=== PATIENT | male | born 1955 | race Caucasian/White ===

== ENCOUNTER 2021-12-11 19:26 | Observation (INO) ==
--- NOTE | 2021-12-11 19:22 | Emergency Department Note ---
History of Present Illness General Chief Complaint: Heart Alert Stated Complaint: Heart Alert History of Present Illness Provider Complaint: chest pain Onset (ago): day(s) 2 Duration: intermittent Pain Location: substernal Maximum Pain Intensity: 10 Current Pain Intensity: 10 Quality: + heaviness Relieved By: + nothing Exacerbated By: + nothing Associated symptoms: + dyspnea; no nausea or no vomiting Treatments prior to arrival: aspirin Home Medications Medication Instructions Recorded Confirmed Type No Known Home Medications 12/11/21 12/11/21 History Allergies Allergy/AdvReac Type Severity Reaction Status Date / Time No Known Allergies Allergy Unverified 12/11/21 19:52 Past Med/Surg History Medical History Left lumbar radiculitis No pertinent family history Surgical History No pertinent past surgical history Social History Smoking Status: Current every day smoker Tobacco Type: Cigars Hx Alcohol Use: No Hx Substance Use: No Preferred Language: Burkin[place] Tower Foreman Required: No Beliefs That Will Affect Care: None Current Living Situation: Family Feels Safe at Home: Yes Safety Concerns: Feels Safe At This Time Assistive Devices: None Assistive Devices Comment: reading glasses Review of Systems A total of 10 systems reviewed and were otherwise negative Physical Exam Vital Signs Vital Signs - 24 hr 12/11/21 19:31 12/11/21 19:36 12/11/21 19:40 Temperature 36.8 C Temperature Source Oral Pulse Rate 79 75 75 Pulse Rate [Left Apical] Respiratory Rate 19 17 21 Respiratory Effort / Characteristics Non-Labored Spontaneous Respiratory Depth Normal Blood Pressure 122/94 Blood Pressure [Left Arm] Blood Pressure Mean 103 Blood Pressure Mean [Left Arm] Blood Pressure Position [Left Arm] Pulse Oximetry 95 94 95 Pulse Oximetry [Left Index Finger] Oxygen Delivery Method Room Air Room Air Room Air Oxygen Delivery Method [Left Index Finger] Sepsis New/Unexplained Change in Mental Status N/A Sepsis Action Taken by Nursing No Action Required 12/11/21 20:19 12/11/21 21:15 Temperature 36.7 C Temperature Source Oral Pulse Rate Pulse Rate [Left Apical] 64 Respiratory Rate 17 Respiratory Effort / Characteristics Respiratory Depth Blood Pressure Blood Pressure [Left Arm] 125/77 Blood Pressure Mean Blood Pressure Mean [Left Arm] 93 Blood Pressure Position [Left Arm] Lying Pulse Oximetry 94 Pulse Oximetry [Left Index Finger] 95 Oxygen Delivery Method Room Air Oxygen Delivery Method [Left Index Finger] Room Air Sepsis New/Unexplained Change in Mental Status Sepsis Action Taken by Nursing Physical Exam GENERAL: He is oriented to person, place, and time. He appears well-developed and well-nourished. He does not appear distressed. HENT: Exam performed. - Head: Normocephalic and atraumatic. - Right Ear: External ear normal. No mastoid tenderness. - Left Ear: External ear normal. No mastoid tenderness. - Mouth/Throat: The oropharynx is clear and moist. No trismus in the jaw. No dental abscesses or uvula swelling. No oropharyngeal exudate or tonsillar abscesses. EYES: Conjunctivae and EOM are normal. Pupils are equal, round, and reactive to light. Right eye exhibits no discharge. Left eye exhibits no discharge. No scleral icterus. NECK: Normal range of motion. Neck supple. No JVD present. No spinous process tenderness present. No carotid bruit present. No rigidity. No tracheal deviation and normal range of motion present. No Brudzinski's sign and no Kernig's sign noted. CV: Normal rate, regular rhythm, normal heart sounds and intact distal pulses. There is no peripheral edema. Palpable radial pulses bue. PULM/CHEST: Effort normal and breath sounds normal. No respiratory distress. No stridor. He has no wheezes. He has no rales. - Chest Wall: He exhibits no tenderness. ABD: The abdomen is soft. Bowel sounds are normal. He has no distension. No mass is present. There is no tenderness. There is no rebound, no guarding, no Quintana's sign and no tenderness at McBurney's point. Rovsig negative. MUSC/SKEL: Normal range of motion. There is no peripheral edema, tenderness or deformity. LYMPH: No cervical adenopathy. NEURO: He is alert and oriented to person, place, and time. He has normal stren gth. No cranial nerve deficit or sensory deficit. Coordination and gait normal. GCS eye subscore is 4. GCS verbal subscore is 5. GCS motor subscore is 6. Cerebellar tests wnl. SKIN: Skin is warm and dry. He is not diaphoretic. PSYCH: He has a normal mood and affect. Behavior is normal. Judgment and thought content normal. Course Course 1904: call from EMS. heart alert called. prehosptial ekg sinus rhythym rate 76. [place] QRS QTc intervals within normal limits. ST elevation II, III, avF and STD I, aVL. 1929: The patient was evaluated in room B1. A complete history and physical exam was performed Cardiac monitoring: An order was placed for continuous cardiac monitoring. The monitor shows a rate of 70 with sinus rhythm 1932: Dr. Cody at bedside. 1941: Dr. Cody taken patient to the [facility]. Administered Medications Sodium Chloride (Nss 1000ml) 1,000 mls @ 100 mls/hr IV .Q10H [facility] Stop: 12/12/21 04:59 Last Admin: 12/11/21 22:12 Dose: 100 mls/hr Documented by: [id number] Metoprolol Tartrate (Metoprolol Tartrate 25 Mg Tab) 12.5 mg PO BID [facility] Stop: 01/10/22 21:29 Last Admin: 12/11/21 22:23 Dose: 12.5 mg Documented by: [id number] Discontinued Medications Atropine Sulfate (Atropine Sulfate 0.1 Mg/Ml 10ml Syr) Confirm Administered Dose 1 mg IV .STK-MED ONE Stop: 12/11/21 20:00 Last Admin: 12/11/21 20:52 Dose: Not Given Documented by: [id number] Clopidogrel Bisulfate (Clopidogrel Bisulfate 300 Mg Tab) Confirm Administered Dose 600 mg .ROUTE .STK-MED ONE Stop: 12/11/21 19:31 Last Admin: 12/11/21 20:52 Dose: 600 mg Documented by: [id number] Fentanyl Citrate (Fentanyl Citrate 100 Mcg/2 Ml Vial) Confirm Administered Dose 100 mcg .ROUTE .STK-MED ONE Stop: 12/11/21 19:27 Last Increment: 12/11/21 20:51 Dose: 50 mcg Documented by: [id number] Heparin Sodium (Porcine) (Heparin (Porcine) 1000 Unit/Ml 10 Ml ([facility] Use Only)) Confirm Administered Dose 10,000 units .ROUTE .STK-MED ONE Stop: 12/11/21 19:27 Last Admin: 12/11/21 20:51 Dose: 10,000 units Documented by: [id number] Heparin Sodium (Porcine) (Heparin (Porcine) 1000 Unit/Ml 10 Ml ([facility] Use Only)) Confirm Administered Dose 10,000 units .ROUTE .STK-MED ONE Stop: 12/11/21 20:24 Last Admin: 12/11/21 20:52 Dose: 2,000 units Documented by: [id number] Heparin Sodium/Sodium Chloride (Heparin In Nss Infusion 1000 Unit/500 Ml (2 U/Ml) Bag) Confirm Administered Dose 3,000 units IV .STK-MED ONE Stop: 12/11/21 19:27 Last Admin: 12/11/21 20:51 Dose: 3,000 units Documented by: [id number] Midazolam HCl (Midazolam Hcl 1 Mg/Ml 2ml Vial) Confirm Administered Dose 2 mg .ROUTE .STK-MED ONE Stop: 12/11/21 19:27 Last Admin: 12/11/21 20:51 Dose: 2 mg Documented by: [id number] Nicardipine HCl (Nicardipine Hcl Inj 2.5 Mg/Ml 10 Ml Amp) Confirm Administered Dose 25 mg .ROUTE .[id number] [address]-MED ONE Stop: 12/11/21 19:27 Last Admin: 12/11/21 20:52 Dose: 25 mg Documented by: [id number] Nitroglycerin/Dextrose (Nitroglycerin/D5w 100mcg/Ml 20ml Syr) Confirm Administered Dose 2,000 mcg .ROUTE .[id number] [address]-MED ONE Stop: 12/11/21 19:28 Last Admin: 12/11/21 20:52 Dose: 2,000 mcg Documented by: [id number] Medical Decision Making Laboratory Data Result diagrams: 12/11/21 19:32 12/11/21 19:32 Labs: Lab Results 12/11/21 12/11/21 12/11/21 Range/Units 19:32 19:32 19:32 WBC 10.60 (4.8-10.8) K/uL RBC 4.89 (4.7-6.1) M/uL Hgb 15.3 (14.0-18.0) g/dL Hct 44.3 (42-52) % MCV 90.6 (80-100) fL MCH 31.3 (25-34) pg MCHC 34.5 (32-36) g/dL RDW Std Deviation 48.4 H (36.4-46.3) fL RDW Coeff of Alessandro 14.5 (11.5-14.5) % Plt Count 250 (130-400) K/uL MPV 8.8 (7.4-10.4) fL Immature Gran % (Auto) 0.3 % Neut % (Auto) 70.6 % Lymph % (Auto) 18.8 % Dare % (Auto) 8.6 % Eos % (Auto) 1.2 % Baso % (Auto) 0.5 % Neut # (Auto) 7.49 H (1.4-6.5) K/uL Lymph # (Auto) 1.99 (1.2-3.4) K/uL Dare # (Auto) 0.91 H (0.11-0.59) K/uL Eos # (Auto) 0.13 (0-0.5) K/uL Baso # (Auto) 0.05 (0-0.2) K/uL Immature Gran # (Auto) 0.03 H (0.00-0.02) K/uL PT 10.5 (9.0-12.0) Seconds INR 1.0 (0.9-1.1) APTT 27.3 (21.0-31.0) Seconds PTT Ratio 1.0 Sodium 141 (136-145) mmol/L Potassium 4.1 (3.5-5.1) mmol/L Chloride 108 H (98-107) mmol/L Carbon Dioxide 25 (21-32) mmol/L Anion Gap 8 (3-11) BUN 22 (6-23) mg/dl Creatinine 1.14 (0.6-1.4) mg/dl Est Cr Clr Drug Dosing 74.9 ml/min Est GFR ( Amer) 78.3 ml/min Est GFR (Non-Af Amer) 67.6 ml/min BUN/Creatinine Ratio 19.3 (10-20) Glucose 105 H (70-99(Fasting)) mg/dl Calcium 9.0 (8.5-10.1) mg/dl Magnesium 1.8 (1.7-2.4) mg/dl Total Bilirubin 0.4 (0.2-1.0) mg/dl AST 21 (13-39) U/L ALT 17 (7-52) U/L Alkaline Phosphatase 55 (34-104) U/L Total Creatine Kinase 203 (30-223) U/L Troponin I 0.91 H* (0-0.04) ng/ml B-Natriuretic Peptide (0-100) pg/ml Total Protein 6.8 (6.0-8.3) gm/dl Albumin 3.8 (3.4-5.0) gm/dl Globulin 3.0 (2.5-4.0) gm/dl Albumin/Globulin Ratio 1.3 (0.9-2) Lipase 42 (11-82) U/L TSH (0.300-4.500) uIu/ml SARS-CoV-2, RNA, NAAT (NEGATIVE) 12/11/21 12/11/21 12/11/21 Range/Units 19:32 19:32 20:00 WBC (4.8-10.8) K/uL RBC (4.7-6.1) M/uL Hgb (14.0-18.0) g/dL Hct (42-52) % MCV (80-100) fL MCH (25-34) pg MCHC (32-36) g/dL RDW Std Deviation (36.4-46.3) fL RDW Coeff of Alessandro (11.5-14.5) % Plt Count (130-400) K/uL MPV (7.4-10.4) fL Immature Gran % (Auto) % Neut % (Auto) % Lymph % (Auto) % Dare % (Auto) % Eos % (Auto) % Baso % (Auto) % Neut # (Auto) (1.4-6.5) K/uL Lymph # (Auto) (1.2-3.4) K/uL Dare # (Auto) (0.11-0.59) K/uL Eos # (Auto) (0-0.5) K/uL Baso # (Auto) (0-0.2) K/uL Immature Gran # (Auto) (0.00-0.02) K/uL PT (9.0-12.0) Seconds INR (0.9-1.1) APTT (21.0-31.0) Seconds PTT Ratio Sodium (136-145) mmol/L Potassium (3.5-5.1) mmol/L Chloride (98-107) mmol/L Carbon Dioxide (21-32) mmol/L Anion Gap (3-11) BUN (6-23) mg/dl Creatinine (0.6-1.4) mg/dl Est Cr Clr Drug Dosing ml/min Est GFR ( Amer) ml/min Est GFR (Non-Af Amer) ml/min BUN/Creatinine Ratio (10-20) Glucose (70-99(Fasting)) mg/dl Calcium (8.5-10.1) mg/dl Magnesium (1.7-2.4) mg/dl Total Bilirubin (0.2-1.0) mg/dl AST (13-39) U/L ALT (7-52) U/L Alkaline Phosphatase (34-104) U/L Total Creatine Kinase (30-223) U/L Troponin I (0-0.04) ng/ml B-Natriuretic Peptide 98 (0-100) pg/ml Total Protein (6.0-8.3) gm/dl Albumin (3.4-5.0) gm/dl Globulin (2.5-4.0) gm/dl Albumin/Globulin Ratio (0.9-2) Lipase (11-82) U/L TSH 2.052 (0.300-4.500) uIu/ml SARS-CoV-2, RNA, NAAT NEGATIVE (NEGATIVE) ECG Data Indication: chest pain Rate (beats per minute): 73 Rhythm: normal sinus Findings: no ST depression, no ST elevation or no prolonged QT MDM Narrative 1904: call from EMS. heart alert called. prehosptial ekg sinus rhythym rate 76. [place] QRS QTc intervals within normal limits. ST elevation II, III, avF and STD I, aVL. 1929: The patient was evaluated in room B1. A complete history and physical exam was performed Cardiac monitoring: An order was placed for continuous cardiac monitoring. The monitor shows a rate of 70 with sinus rhythm 1932: Dr. Cody at bedside. 1941: Dr. Cody taken patient to the [facility]. Impression & Plan ST elevation (STEMI) myocardial infarction Critical Care Time Critical Care Time: Yes Total Critical Care Time: 37 I have personally spent greater than 37 minutes of critical care time in the direct management of this patient. This includes bedside care, interpretation of diagnostic studies, and testing, discussion with consultants, patient, and family members, and other required patient management activities. This 37 minutes is in excess of all separately billable procedures. Discharge Plan Visit Data Chief Complaint: Heart Alert Stated Complaint: Heart Alert ED Provider: Louis Lewis Discharge Problem: ST elevation (STEMI) myocardial infarction Patient Disposition: Admitted As Inpatient Discharge Instructions Interventions: ED Discharge Assessment Last Done: 12/11/21 19:42
[~2021-12-11 19:26] MED LIST: HEPARIN (PORCINE) 1000 UNIT/ML 10 ML (CATH LAB USE ONLY) ONE; MIDAZOLAM HCL 1 MG/ML 2ML VIAL ONE; fentaNYL citrate 100 MCG/2 ML VIAL ONE; niCARdipine HCL INJ 2.5 MG/ML 10 ML AMP ONE
[2021-12-11] MEDS ORDERED: NITROGLYCERIN/D5W 100MCG/ML 20ML SYR ONE (19:27)
[2021-12-11] MEDS ORDERED: CLOPIDOGREL BISULFATE 300 MG TAB ONE (19:30)
[2021-12-11 19:40] LABS: Basophils # (auto) 0.05 K/uL (0-0.2); Basophils % (auto) 0.5 %; Eosinophils # (auto) 0.13 K/uL (0-0.5); Eosinophils % (auto) 1.2 %; Hematocrit (blood only) 44.3 % (42-52); Hemoglobin 15.3 g/dL (14.0-18.0); Immature Granulocytes # (auto) 0.03 K/uL (0.00-0.02); Immature Granulocytes % (auto) 0.3 %; Lymphocytes # (auto) 1.99 K/uL (1.2-3.4); Lymphocytes % (auto) 18.8 %; Mean Corpuscular Hemoglobin 31.3 pg (25-34); Mean Corpuscular Hgb Conc 34.5 g/dL (32-36); Mean Corpuscular Volume 90.6 fL (80-100); Mean Platelet Volume 8.8 fL (7.4-10.4); Monocytes # (auto) 0.91 K/uL (0.11-0.59); Monocytes % (auto) 8.6 %; Neutrophils # (auto) 7.49 K/uL (1.4-6.5); Neutrophils % (auto) 70.6 %; Platelet Count 250 K/uL (130-400); RDW Coefficient of Variation 14.5 % (11.5-14.5); RDW Standard Deviation 48.4 fL (36.4-46.3); Red Blood Count 4.89 M/uL (4.7-6.1)
--- NOTE | 2021-12-11 19:44 | Pre Anesthesia Assessment ---
Date of Service December 11, 2021 Pre Sedation Assessment Vital Signs Temp Pulse Resp BP Pulse Ox 12/11/21 19:31 98.2 F 79 19 122/94 95 Cardiovascular RRR, no murmur, no edema Respiratory normal respiratory effort, lungs clear to auscultation Pre-Sedation Airway Assessment Smoking Status: Current every day smoker Hx Sleep Apnea: No Hx Difficult Intubation: No Short, Thick Neck: No Thyromental Distance: > or= 3.5 Finger Breadths Oral Cavity: + WNL Mallampati Class: III ASA: ASA3 Procedure Planning Contraindications for Sedation: none Current Medications Reviewed: Yes Notes The planned sedation has been discussed with the patient. Informed Consent was obtained. I have identified the patient, determined the appropriateness of sedation and have assessed the patient immediately prior to the procedure. All medicine(s) and interventions are by my order.
--- NOTE | 2021-12-11 19:49 | Cardiology Consultation ---
Date of Consultation December 11, 2021 Assessment & Plan (1) ACS (acute coronary syndrome): Presentation consistent with high risk acute coronary syndrome and recommend proceeding with emergent cardiac catheterization and likely primary PCI. No apparent contraindications to procedure. Discussed risks, benefits, alternatives of procedure with patient and they are willing to proceed. Further recommendations pending findings of coronary angiography. History of Present Illness History of Present Illness 66-year-old man here with acute chest pain and ECG concerning for acute NM. Patient seen emergently in the ED after heart alert activated en route. No past prior cardiac history. He is on no medications. Cardiac risk factors include tobacco use. Patient developed chest pain which he described as heaviness involving the top part of his chest yesterday morning. Pain intermittent since that time and this evening became worse, at its worst 9 out of 10 radiating to his neck, back with associated diaphoresis. ECG in the field showed inferior ST elevations and heart alert of activated. On arrival patient with mild residual chest pain, [address] elevations largely resolved on ECG here. Hemodynamically stable. Allergies Allergy/AdvReac Type Severity Reaction Status Date / Time No Known Allergies Allergy Unverified 12/11/21 19:52 Home Medications Medication Instructions Recorded Confirmed Type No Known Home Medications 12/11/21 12/11/21 History Patient History Medical History (Updated 12/11/21 @ 21:18 by Lisandro Cody MD) Left lumbar radiculitis No pertinent family history Surgical History (Updated 12/11/21 @ 19:22 by Louis Lewis) No pertinent past surgical history Social History Smoking Status: Current every day smoker Tobacco Type: Cigars Hx Alcohol Use: No Hx Substance Use: No Preferred Language: [place] Islander Sub Prior Required: No Beliefs That Will Affect Care: None Current Living Situation: Family Feels Safe at Home: Yes Safety Concerns: Feels Safe At This Time Assistive Devices Comment: reading glasses Review of Systems Review of Systems: All systems reviewed & are unremarkable except as noted in HPI & below Physical Exam Physical Exam: General: Uncomfortable HEENT: Sclerae anicteric, Mask in place Lungs: Clear to auscultation anteriorly Cardiac: Regular rate Vascular: 2+ radial Abdomen: Soft, nontender Extremities: Well perfused, no peripheral edema Neuro: Nonfocal Psych: Alert orient x3, normal affect and mood Results & Data ([facility]) Vital Signs (Past 12 Hours) Vital Signs Temp Pulse Resp BP Pulse Ox 12/11/21 19:31 98.2 F 79 19 122/94 95 PG Care Time/CCT Total # of Minutes Spent Total Time Spent with Patient: Total time spent is greater than 50% in coordination of care (as documented) at patient's floor/unit and/or counseling patient: Coding Level of Care Code 95839 Office/OBS Consult Lvl 4 Diagnoses ACS (acute coronary syndrome) I24.9
[2021-12-11 19:51] LABS: Partial Thromboplastin Time 27.3 Seconds (21.0-31.0); Prothrombin Time 10.5 Seconds (9.0-12.0)
[2021-12-11] MEDS ORDERED: ATROPINE SULFATE 0.1 MG/ML 10ML SYR IV ONE (19:59)
[2021-12-11 20:07] LABS: Albumin Globulin Ratio 1.3 (0.9-2); Albumin Level 3.8 gm/dl (3.4-5.0); BUN Creatinine Ratio 19.3 (10-20); Bilirubin,Total 0.4 mg/dl (0.2-1.0); Creatinine Clr Calc Pharmacy 74.9 ml/min; Est GFR (African American) 78.3 ml/min; Est GFR (Non-African American) 67.6 ml/min; Magnesium 1.8 mg/dl (1.7-2.4); Potassium 4.1 mmol/L (3.5-5.1); Total Protein 6.8 gm/dl (6.0-8.3)
[2021-12-11] MEDS ORDERED: HEPARIN (PORCINE) 1000 UNIT/ML 10 ML (CATH LAB USE ONLY) ONE (20:23)
[2021-12-11 20:33] LABS: Troponin I 0.91 ng/ml (0-0.04)
--- NOTE | 2021-12-11 21:20 | Post Anesthesia Assessment ---
Date of Service December 11, 2021 Post Sedation Assessment Vital Signs Temp Pulse Resp BP Pulse Ox 12/11/21 19:40 75 21 95 12/11/21 19:36 75 17 94 12/11/21 19:31 98.2 F 79 19 122/94 95 Recovery Score Activity: Moves 4 extremities Respiration: Deep Breath/Cough Circulation: +/-20% PreAnes Value Consciousness: Fully Awake Oxygen Saturation: O2 needed for >90% Discharge Sedation Level of Care: Fast Track Phase II Post Sedation Plan On clinical assessment, the patient appears to have tolerated the sedation without complications. Patient is recovering as anticipated. Patient will continue to be monitored by nursing and may be discharged when sedation discharge criteria are met per below protocol. Upon Completions of procedure up to 15 minutes continue every 5 minute vital signs and the P.A.R. score; then discharge to a Phase I or Fast Track to Phase II per the following guidelines: * Discharge Patient to appropriate Phase II area if PAR is 8 or greater or return to pre- procedure baseline. The post - procedure orders will be as directed. * If PAR score is less than 8 or not return to pre-procedure baseline then patient will follow Phase I monitoring till PAR is reached for Phase II. The Phase I may be done in procedure room or may call to secure a Phase I area. * If naloxone or flumazenil are used for reversal, hold in Phase I for continued monitoring from when last reversal dose was given for a minimum of 60 minutes or longer pending the nurse and/or physician discretion of patient condition before discharge to Phase II. Please call the Sedation Physician to re-evaluate and complete post-note for discharge to Phase II area. Do NOT discharge from procedure sedation or Phase 1 until post- sedation evaluation note is complete by procedure /sedation MD Sedation Discharge Instructions to be given to the patient at discharge to home.
[2021-12-11] MEDS ORDERED: ACETAMINOPHEN 325 MG TAB PO PRN (21:22)
[2021-12-11] MEDS ORDERED: NITROGLYCERIN SL 0.4 MG/TAB TAB SL PRN (21:22)
[2021-12-11] MEDS ORDERED: ONDANSETRON INJ 2 MG/ML 2 ML VIAL IV PRN (21:22)
[2021-12-11] MEDS ORDERED: SODIUM CHLORIDE 0.9% 1000ML 1,000 ML IV SCH (21:30)
--- NOTE | 2021-12-11 21:50 | Cardiac Catheterization ---
[facility] Data: Assistant Controller Cardiac Status Clinical evaluation leading to the procedure CAD Presenation: Non STEMI Anginal Classification: CCS IV Heart Failure: No Cardiogenic Shock within 24 Hours: No Cardiac Arrest within 24 Hours: No Imaging Studies Past 6 Months: No Stress Studies Past 6 Months: No Diagnostic Physicians Name: Shayne Cody MD Status: Emergency Closure Device Percutaneous Entry Location: Radial Closure Device: Radial Band Recommendations: PCI without planned CABG PCI Indication: PCI for high risk Non-MIRTA First Noted: First EKG Lesion Segment Name: Mid LAD Culprit Artery: Yes Stenosis Prior to Rx (%): 95 Chronic Total Occlusion: No IVUS: Yes FFR: No Pre-Procedure MERON Flow: 3 Previously Treated Lesion: No Lesion Complexity: Non-High/Non-C Thrombus Present: Yes Bifurcation Lesion: No Guidewire Across Lesion: Stenosis Post-Procedure (%): 0 Post-Procedure MERON Flow: 3 Devices(s) Deployed: Yes Yes Intraprocedure Events Significant Disection: No Perforation: No Cardiac Cath Procedure Full Procedure Date December 11, 2021 Pre-Procedure Diagnosis Pre-Procedure Diagnosis: Non STEMI AUC Score AUC Score: 8 Post-Procedure Diagnosis Post-Procedure Diagnosis: Severe CAD, Successful PCI and Normal Intracardiac Pressures Procedure(s) Performed Procedure(s) Performed: Coronary Angiography, Left Heart Cath, Drug Eluting Stent and IVUS Him Manager Shayne Cody MD Medical Numerical Control Operator(s) Jacob Estimated Blood Loss Estimated Blood Loss: 15 Medication(s) Medication(s): Clopidogrel, Fentanyl, Heparin, Lidocaine 1%, Nicardipine, Nitroglycerin and Versed Summary of Findings Indication: High risk ACS. Transient inferior ST elevations on en route ECG. Access: 6 Fr right radial artery Catheters: [place], JR4 guide, EBU 3.75 guide Findings: LM -normal caliber, no significant disease LAD -medium caliber, calcified, 50% proximal stenosis, hazy 95% earlymid LAD followed by ectatic segment, 50 to 60% mid stenosis, distal vessel without significant disease and wraps around apex Ramusmedium caliber, no significant disease Circumflex -medium caliber, mild mid segment disease RCA -dominant, large caliber vessel with diffuse 20-30% mid segment disease, hazy area in distal RCA with questionable dissection flap. 70-80% stenosis at takeoff of medium R-PLB1, mild to moderate disease in R-PLB2 LVEDP -[address] elevations and questionable haziness/dissection flap in distal RCA decision made to evaluate distal RCA with IVUS. RCA cannulated with JR4 guide Head Pastry Chef 50 wire placed into distal right PLB Mead IVUS catheter placed across area of concern Pullback revealed mild diffuse disease without thrombus or apparent dissection. Angiography after wire removal showed no apparent complications Decision to proceed with LAD PCI --LAD PCI -- Antithrombotic therapy: Heparin, clopidogrel Procedure: Left main cannulated with EBU 3.75 guide Head Pastry Chef 50 wire passed across lesion into distal vessel Mid LAD lesion predilated with 2.5 compliant balloon Dilated lesion stented with 3.0 x 18 mm Diego drug-eluting stent Stent post-dilated with 3.5 noncompliant balloon IVUS catheter placed across stent. Pullback revealed well apposed, well- expanded stent. Noted to have moderate to severe proximal LAD just before stent. Second VAUGHN (3.5 x 12 mm Diego) placed to proximal LAD overlapping proximal aspect of initial stent. Stent postdilated with 4.0 NC IC vasodilators administered for spasm Post procedure MERON 3 flow, stents well expanded with minimal residual stenosis and no apparent cardiac complications. Arterial Closure: TR band Summary: 1. Severe multivessel coronary artery disease -95% hazy mid LAD. Residual latemid 50 to 60% stenosis 70 to 80% stenosis in distal right posterior AV branch at branch point with R- PLB1 2. Normal intracardiac filling pressure 3. Successful PCI of proximal to mid LAD with 2 overlapping drug-eluting stents (3.5 x 12, 3.0 x 18 mm Diego; postdilated with 4.0/3.5 NCs). Recommendations: To PCU for continued monitoring Loaded with clopidogrel 600mg in Assistant Controller Continue dual-antiplatelet therapy for at least 1 year Continue statin, and ASCVD risk factor modification Consult cardiac Rehab Medical management of residual distal R-PAV and latemid LAD disease. Hemodynamics Rest Ao:: 110/65/84 Final Ao: 127/69/94 LV: 119/9 Recommendations Recommendations: PCI without planned CABG Specimens Specimens: None Radiation Exposure (mGy) 3330 Contrast (mls) 120 VISI Fluids (cc crystalloids) Fluids (cc crystalloids): 150 Drains Drains: None Anesthesia Moderate 1140-9585 Procedural Complication(s) None Disposition PCU I attest to the content of the Intraoperative Record and any orders documented therein. Any exceptions are noted below. [facility] Card Cath Procedure Codes Cardiac Catheterization Procedure 1: Cardiovascular Cath Procedures: 78043 Coronaries and LHC (+/-LV) Therapeutic Services & Ancillary Proc Procedure 1: Cardiovascular Tx and Anc Procedures: 00428 IV Ultrasound (Coronary or Graft) Moderate Sedation Procedure 1: Sedation/Anesthesia: 48194 Mod Sedation by the same physician;Init15 Min Child Age 5 & Up Procedure 2: Sedation/Anesthesia: 32671 Mod Sedation by the same physician; Ea [id number] Minutes Stenting Procedure 1: Cardiovascular Stent Procedures: 93878 Perc transcatheter placement of intracoronary stent(s), with ang PG Care Time/CCT Total # of Minutes Spent Total Time Spent with Patient: Total time spent is greater than 50% in coordination of care (as documented) at patient's floor/unit and/or counseling patient:
[2021-12-11] MEDS: METOPROLOL TARTRATE 25 MG TAB PO SCH (22:23)
[2021-12-12 04:04] LABS: Basophils # (auto) 0.04 K/uL (0-0.2); Basophils % (auto) 0.3 %; Eosinophils # (auto) 0.17 K/uL (0-0.5); Eosinophils % (auto) 1.4 %; Hematocrit (blood only) 43.5 % (42-52); Hemoglobin 14.9 g/dL (14.0-18.0); Immature Granulocytes # (auto) 0.02 K/uL (0.00-0.02); Immature Granulocytes % (auto) 0.2 %; Lymphocytes # (auto) 2.17 K/uL (1.2-3.4); Mean Corpuscular Hgb Conc 34.3 g/dL (32-36); Mean Corpuscular Volume 90.4 fL (80-100); Mean Platelet Volume 8.7 fL (7.4-10.4); Monocytes # (auto) 0.76 K/uL (0.11-0.59); Monocytes % (auto) 6.3 %; Neutrophils # (auto) 8.89 K/uL (1.4-6.5); Neutrophils % (auto) 73.8 %; Platelet Count 220 K/uL (130-400); RDW Coefficient of Variation 14.6 % (11.5-14.5); RDW Standard Deviation 48.5 fL (36.4-46.3); Red Blood Count 4.81 M/uL (4.7-6.1); White Blood Count 12.05 K/uL (4.8-10.8)
[2021-12-12 04:41] LABS: BUN Creatinine Ratio 23.1 (10-20); Calcium 8.7 mg/dl (8.5-10.1); Chol HDL Ratio 6.6 (0-5); Creatinine Clr Calc Pharmacy 105.4 ml/min; Est GFR (African American) 110.6 ml/min; Est GFR (Non-African American) 95.4 ml/min; Potassium 3.7 mmol/L (3.5-5.1)
[2021-12-12 04:57] LABS: Troponin I 4.41 ng/ml (0-0.04)
--- NOTE | 2021-12-12 08:37 | XCELERA ---
[id number]
[2021-12-12] MEDS: METOPROLOL TARTRATE 25 MG TAB PO SCH (08:43)
[2021-12-12] MEDS ORDERED: ATORVASTATIN 40 MG TAB PO SCH (09:00)
[2021-12-12] MEDS ORDERED: lisinopril 5 MG TAB PO SCH (09:00)
[2021-12-12] MEDS ORDERED: CLOPIDOGREL BISULFATE 75 MG TAB PO SCH (09:00)
[2021-12-12] MEDS ORDERED: ASPIRIN 81 MG ECTAB PO SCH (09:00)
[2021-12-12] MEDS ORDERED: CLOPIDOGREL BISULFATE 75MG Homepack PO ONE (09:13)
[2021-12-12] MEDS ORDERED: CLOPIDOGREL BISULFATE 75MG Homepack ONE (09:14)
--- NOTE | 2021-12-12 09:24 | Electrocardiogram Report ---
Test Reason : Blood Pressure : / mmHG Vent. Rate : 073 BPM Atrial Rate : 073 BPM P-R Int : 162 ms QRS Dur : 092 ms QT Int : 374 ms P-R-T Axes : 055 015 026 degrees QTc Int : 412 ms Poor data quality, interpretation may be adversely affected Normal sinus rhythm Inferior infarct , age undetermined Abnormal ECG When compared with ECG of 25-APR-2015 17:15, Inferior infarct is now Present Confirmed by Aristides Rosales ([id number]) on 12/12/2021 9:23:59 AM Referred By: REFERRED SELF Confirmed By:Aristides Rosales
--- NOTE | 2021-12-12 09:29 | Electrocardiogram Report ---
Test Reason : Blood Pressure : / mmHG Vent. Rate : 062 BPM Atrial Rate : 062 BPM P-R Int : 170 ms QRS Dur : 098 ms QT Int : 402 ms P-R-T Axes : 042 -22 016 degrees QTc Int : 408 ms Normal sinus rhythm Inferior infarct (cited on or before 11-DEC-2021) Abnormal ECG When compared with ECG of 11-DEC-2021 19:32, (unconfirmed) No significant change was found Confirmed by Aristides Rosales ([id number]) on 12/12/2021 9:28:55 AM Referred By: REFERRED SELF Confirmed By:Aristides Rosales
--- NOTE | 2021-12-12 09:45 | Discharge Summary ---
Date of Service December 12, 2021 Admission HPI Per Admitting Provider 66-year-old man here with acute chest pain and ECG concerning for acute CO. Patient seen emergently in the ED after heart alert activated en route. No past prior cardiac history. He is on no medications. Cardiac risk factors include tobacco use. Patient developed chest pain which he described as heaviness involving the top part of his chest yesterday morning. Pain intermittent since that time and this evening became worse, at its worst 9 out of 10 radiating to his neck, back with associated diaphoresis. ECG in the field showed inferior ST elevations and heart alert of activated. On arrival patient with mild residual chest pain, [address] elevations largely resolved on ECG here. Hemodynamically stable. Discharge Data Consultations 12/11/21 21:26 Consult Cardiac Rehabilitation Routine Procedures Performed Operation Date: 12/11/21 19:30 Actual Procedures p Aspiration/PCI w/VAUGHN for Stemi - Lisandro Cody MD s IVUS Coronary Single Vessel - Lisandro Cody MD s IVUS Coronary each ADDL Vessel - Lisandro Cody MD Hospital Course (1) ACS (acute coronary syndrome): Due to transient inferior ST elevations on ECG with EMS a Heart Alert was activated en route to ED. Mild residual chest pain on arrival to ED and ST elevations had resolved. Taken urgently to cardiac catheter builder for further evaluation and found to have a 95% acute appearing mid LAD stenosis. Treated with 2 overlapping VAUGHN from proximal to mid LAD. Had residual late-mid LAD disease (50-60%) and distal R-PAV stenosis (70%). Post procedure admitted to [facility] for observation. Remained chest pain free, electrically and hemodynamically stable. Troponin peaked at 4. Post procedure echocardiogram showed an LVEF of 60-65% with no wall motion abnormalities, moderate concentric LVH with grade I diastolic dysfunction. Also had mitral valve prolapse with mild to moderate eccentric MR. On hospital day 2 was feeling well with no additional chest pain. No access site complications. Post procedure labs stable. Lipids remarkable for LDL of 194. Discharged to home on DAPT with aspirin, clopidogrel. Follow-up scheduled on 12/28/2021 at 10 AM. Discharge Instructions Home Medications aspirin 81 mg tablet,delayed release 30 mg PO QAM #30 tab 12/12/21 [Rx] atorvastatin 80 mg tablet 80 mg PO QAM #30 tab 12/12/21 [Rx] clopidogrel 75 mg tablet 75 mg PO QAM #30 tab 12/12/21 [Rx] lisinopril 5 mg tablet (Zestril) 5 mg PO QAM #30 tab 12/12/21 [Rx] metoprolol tartrate 25 mg tablet 25 mg PO BID #60 tab 12/12/21 [Rx] nitroglycerin 0.4 mg sublingual tablet (Nitrostat) 0.4 mg SUBLINGUAL PRN PRN #30 tab 12/12/21 [Rx] Coding Level of Care Code 19142 OBS Care - Discharge Diagnoses ACS (acute coronary syndrome) I24.9
[2021-12-12 09:50] LABS: Estimated Average Glucose 126 mg/dl
== END 2021-12-12 11:08 | disposition home or self-care (01) ==
LOC: ED 19:26 → 2S 19:42 → CC 19:42